=== PATIENT | female | born 1970 | race Caucasian/White ===

== ENCOUNTER → 2016-04-05 | Outpatient (CLI) | payer BC, OTHER | END | disposition home or self-care (01) | LOC: MMGSC 12:20 | PROVIDERS: ATTEND Family Medicine | DX: E03.9 Hypothyroidism, unspecified (principal) | CPT/HCPCS: 36415; 84439; 84443 ==

== ENCOUNTER → 2016-04-06 | Outpatient (CLI) | payer BC, OTHER ==
[2016-04-06 20:23] LABS: Basophils % (A) 0 %; CH 31.9; CHCM 32.7; Eosinophils # (A) 0.1 k/uL (0-0.7); Eosinophils % (A) 2 %; HCT 39.1 % (34.0-46.0); HGB 12.7 gm/dL (11.4-16.0); Luc # (Auto) 0.09; Luc % (Auto) 1; Lymphocytes # (A) 0.9 k/uL (1.0-4.8); Lymphocytes % (A) 14 %; MCH 31.8 pg (25.0-35.0); MCHC 32.4 g/dL (31.0-37.0); MCV 98.1 fL (80.0-100.0); Mean Platelet Volume 9.9; Monocytes # (A) 0.3 k/uL (0-1.0); Monocytes % (A) 6 %; Neutrophils # (A) 4.7 k/uL (1.3-7.7); Neutrophils % (A) 76 %; RBC 3.99 m/uL (3.80-5.40); RDW 12.8 % (11.5-15.5); WBC 6.2 k/uL (3.8-10.6); WBC (Perox) 6.39
[2016-04-06 20:53] LABS: ALT 18 U/L (9-52); AST 20 U/L (14-36); Alkaline Phosphatase 49 U/L (38-126); Anion Gap 9 mmol/L; Blood Urea Nitrogen 9 mg/dL (7-17); Calcium 9.2 mg/dL (8.4-10.2); Carbon Dioxide 26 mmol/L (22-30); Chloride 104 mmol/L (98-107); Cholesterol 198 mg/dL (<200); Glucose 90 mg/dL (74-99); HDL Cholesterol 63 mg/dL (40-60); Non-African American GFR(MDRD) >60 (>60 ml/min/1.73 sqM); Potassium 4.4 mmol/L (3.5-5.1); Sodium 139 mmol/L (137-145); Total Bilirubin 1.2 mg/dL (0.2-1.3); Total Protein 7.7 g/dL (6.3-8.2); Triglycerides 69 mg/dL (<150)
== END | disposition home or self-care (01) ==
LOC: MMGSC 10:19
PROVIDERS: ATTEND Family Medicine
DX: E78.5 Hyperlipidemia, unspecified (principal)
CPT/HCPCS: 36415; 80053; 80061; 85025

== ENCOUNTER → 2016-06-01 | Outpatient (CLI) | payer BC, OTHER | END | disposition home or self-care (01) | LOC: MMGSC 14:04 | PROVIDERS: ATTEND Family Medicine | DX: E03.9 Hypothyroidism, unspecified (principal) | CPT/HCPCS: 36415; 84439; 84443 ==

== ENCOUNTER → 2016-07-28 | Outpatient (CLI) | payer BC, OTHER | LOC: MMGSC 16:17 | PROVIDERS: ATTEND Family Medicine | DX: E03.9 Hypothyroidism, unspecified (principal) | CPT/HCPCS: 36415; 84439; 84443 ==

== ENCOUNTER → 2016-10-28 | Outpatient (CLI) | payer BC, OTHER | LOC: MMGSC 12:13 | PROVIDERS: ATTEND Family Medicine | DX: L30.9 Dermatitis, unspecified (principal) | CPT/HCPCS: 87070; 87075; 87077; 87186; 87205 ==

== ENCOUNTER → 2017-04-21 | Outpatient (CLI) | payer BC, OTHER ==
--- NOTE | 2017-04-22 11:18 | MM ---
Reason for exam: screening (asymptomatic). Last mammogram was performed 2 years and 11 months ago. History: Patient had first child at age 29. Physical Findings: A clinical breast exam by your physician is recommended on an annual basis and results should be correlated with mammographic findings. MG Screening Mammo w CAD Bilateral CC and MLO view(s) were taken. Prior study comparison: May 17, 2014, bilateral MG screening mammo w CAD. April 17, 2013, bilateral digital screening mammo w/CAD. The breast tissue is heterogeneously dense. This may lower the sensitivity of mammography. There is a new right upper inner quadrant 6mm mass at posterior depth. No suspicious abnormality in the left breast. ASSESSMENT: Incomplete: need additional imaging evaluation, BI-RAD 0 RECOMMENDATION: Special view mammogram of the right breast. If lesion persists on supplemental views, image directed ultrasound is recommended. [facility] will attempt to contact patient to return for supplemental views and ultrasound if indicated.
== END | disposition home or self-care (01) ==
LOC: RADMAMWWP 14:28
PROVIDERS: ATTEND Family Medicine
DX: Z12.31 Encounter for screening mammogram for malignant neoplasm of breast (principal)
CPT/HCPCS: 77067

== ENCOUNTER → 2017-04-21 | Outpatient (CLI) | payer BC, OTHER ==
[2017-04-21 19:37] LABS: ALT 14 U/L (9-52); AST 22 U/L (14-36); Albumin 4.3 g/dL (3.5-5.0); Alkaline Phosphatase 52 U/L (38-126); Anion Gap 12 mmol/L; Blood Urea Nitrogen 13 mg/dL (7-17); Calcium 9.7 mg/dL (8.4-10.2); Carbon Dioxide 25 mmol/L (22-30); Chloride 105 mmol/L (98-107); Cholesterol 196 mg/dL (<200); Glucose 105 mg/dL (74-99); HDL Cholesterol 67 mg/dL (40-60); LDL Cholesterol,Calculated 119 mg/dL (0-99); Potassium 4.9 mmol/L (3.5-5.1); Sodium 142 mmol/L (137-145); Total Bilirubin 0.7 mg/dL (0.2-1.3); Total Protein 7.9 g/dL (6.3-8.2); Triglycerides 50 mg/dL (<150)
[2017-04-21 19:39] LABS: Basophils % (A) 1 %; Eosinophils # (A) 0.2 k/uL (0-0.7); Eosinophils % (A) 2 %; HCT 40.7 % (34.0-46.0); HGB 13.8 gm/dL (11.4-16.0); Lymphocytes # (A) 0.7 k/uL (1.0-4.8); Lymphocytes % (A) 10 %; MCH 30.7 pg (25.0-35.0); MCHC 33.9 g/dL (31.0-37.0); MCV 90.6 fL (80.0-100.0); Mean Platelet Volume 9.1; Monocytes # (A) 0.4 k/uL (0-1.0); Monocytes % (A) 7 %; Neutrophils # (A) 5.3 k/uL (1.3-7.7); Neutrophils % (A) 79 %; Platelet Count 257 k/uL (150-450); RBC 4.49 m/uL (3.80-5.40); RDW 12.9 % (11.5-15.5); WBC 6.7 k/uL (3.8-10.6)
== END | disposition home or self-care (01) ==
LOC: MMGSC 09:49
PROVIDERS: ATTEND Family Medicine
DX: E03.9 Hypothyroidism, unspecified (principal); E78.00 Pure hypercholesterolemia, unspecified
CPT/HCPCS: 36415; 80053; 80061; 84439; 84443; 85025

== ENCOUNTER → 2017-04-27 | Outpatient (CLI) | payer BC, OTHER ==
--- NOTE | 2017-04-27 11:47 | MM ---
Reason for exam: additional evaluation requested from abnormal screening. Last mammogram was performed less than 1 month ago. History: Patient had first child at age 29. Physical Findings: Nurse did not find any significant physical abnormalities on exam. MG 3D Work Up W/Cad RT Spot compression CC, spot compression MLO, and ML view(s) were taken of the right breast. Prior study comparison: April 21, 2017, bilateral MG screening mammo w CAD. May 17, 2014, bilateral MG screening mammo w CAD. The breast tissue is heterogeneously dense. This may lower the sensitivity of mammography. Very subtle isodense circumscribed mass measuring 6-7mm persists at 1 o'clock middle to posterior depth. These results were verbally communicated with the patient and result sheet given to the patient on 04/27/17. ASSESSMENT: Incomplete: need additional imaging evaluation, BI-RAD 0 RECOMMENDATION: Ultrasound of the right breast. (upper inner quadrant)
--- NOTE | 2017-04-27 11:49 | USB ---
Reason for exam: additional evaluation requested from abnormal screening. History: Patient had first child at age 29. US Breast Workup Limited RT Right breast ultrasound demonstrates a 6 x 5 x 6mm oval, cystic lesion at 1 o'clock, corresponds well to the mammographic finding. Benign. These results were verbally communicated with the patient and result sheet given to the patient on 04/27/17. ASSESSMENT: Benign, BI-RAD 2 RECOMMENDATION: Return to routine screening mammogram schedule for both breasts.
== END | disposition home or self-care (01) ==
LOC: RADMAMWWP 09:38
PROVIDERS: ATTEND Family Medicine
DX: R92.8 Other abnormal and inconclusive findings on diagnostic imaging of breast (principal)
CPT/HCPCS: 77065; 76642; G0279

== ENCOUNTER → 2019-12-21 | Outpatient (CLI) | payer BC, OTHER ==
--- NOTE | 2019-12-24 12:02 | MM ---
Reason for exam: screening (asymptomatic). Last mammogram was performed 2 years and 8 months ago. History: Patient had first child at age 29. Physical Findings: A clinical breast exam by your physician is recommended on an annual basis and results should be correlated with mammographic findings. MG 3D Screening Mammo W/Cad Bilateral CC and MLO view(s) were taken. Prior study comparison: April 27, 2017, right breast MG 3d work up w/cad RT. April 21, 2017, bilateral MG screening mammo w CAD. The breast tissue is heterogeneously dense. This may lower the sensitivity of mammography. There is no discrete abnormality. ASSESSMENT: Benign, BI-RAD 2 RECOMMENDATION: Routine screening mammogram of both breasts in 1 year.
== END | disposition home or self-care (01) ==
LOC: RADMAMWWP 14:54
PROVIDERS: ATTEND Family Medicine
DX: Z12.31 Encounter for screening mammogram for malignant neoplasm of breast (principal)
CPT/HCPCS: 77063; 77067

== ENCOUNTER → 2021-05-04 | Outpatient (CLI) | payer BC, OTHER ==
--- NOTE | 2021-05-06 09:16 | MM ---
Reason for exam: screening (asymptomatic). Last mammogram was performed 1 year and 4 months ago. History: Patient is postmenopausal and had first child at age 29. Physical Findings: A clinical breast exam by your physician is recommended on an annual basis and results should be correlated with mammographic findings. MG 3D Screening Mammo W/Cad Bilateral CC and MLO view(s) were taken. Prior study comparison: December 21, 2019, bilateral MG 3d screening mammo w/cad. April 27, 2017, right breast MG 3d work up w/cad RT. The breast tissue is heterogeneously dense. This may lower the sensitivity of mammography. No significant changes when compared with prior studies. ASSESSMENT: Benign, BI-RAD 2 RECOMMENDATION: Routine screening mammogram of both breasts in 1 year.
== END | disposition home or self-care (01) ==
LOC: RADMAMWWP 13:03
PROVIDERS: ATTEND Family Medicine
DX: Z12.31 Encounter for screening mammogram for malignant neoplasm of breast (principal)
CPT/HCPCS: 77063; 77067

== ENCOUNTER 2021-09-13 20:26 | Observation (INO) | payer BC, OTHER ==
[2021-09-13] MEDS ORDERED: ASPIRIN 81 MG PO STA (20:37)
[2021-09-13] MEDS ORDERED: METOPROLOL TARTRATE 5 MG/5 ML VIAL IVP STA (20:38)
--- NOTE | 2021-09-13 20:42 | ED ---
General Adult HPI - General Chief complaint: Chest Pain Stated complaint: Chest pain Time Seen by Provider: 09/13/21 20:35 Source: patient, EMS, RN notes reviewed Mode of arrival: EMS Limitations: no limitations - History of Present Illness Initial comments: Patient is a pleasant 1-year-old female presenting to the emergency Department with chest discomfort. Onset of symptoms was around an hour and a half ago. Patient has pressure in her chest. Discomfort was mild to moderate. Patient feels shaky. Patient maybe has mild dyspnea. No history of similar symptoms previously. No previous cardiac history. Symptoms did improve with nitro glycerin by EMS and patient is near symptom-free at this time. - Related Data Home Medications Medication Instructions Recorded Confirmed Levothyroxine Sodium [Synthroid] 125 mcg PO DAILY 09/13/21 09/13/21 Rosuvastatin [Crestor] 10 mg PO HS 09/13/21 09/13/21 Sertraline [Zoloft] 50 mg PO DAILY 09/13/21 09/13/21 atenoloL [Tenormin] 12.5 mg PO HS 09/13/21 09/13/21 Allergies Allergy/AdvReac Type Severity Reaction Status Date / Time codeine Allergy Vomiting Verified 09/13/21 20:58 Penicillins Allergy Rash/Hives Verified 09/13/21 20:58 Sulfa (Sulfonamide Allergy Rash/Hives Verified 09/13/21 20:58 Antibiotics) Review of Systems ROS Statement: Those systems with pertinent positive or pertinent negative responses have been documented in the HPI. ROS Other: All systems not noted in ROS Statement are negative. Constitutional: Denies: fever Eyes: Denies: eye pain ENT: Denies: ear pain Respiratory: Denies: cough Cardiovascular: Reports: as per HPI, chest pain Endocrine: Denies: fatigue Gastrointestinal: Denies: abdominal pain, vomiting Genitourinary: Denies: dysuria Musculoskeletal: Denies: arthralgia Skin: Denies: rash Neurological: Denies: weakness General Exam Limitations: no limitations General appearance: alert, in no apparent distress Head exam: Present: normocephalic Eye exam: Present: normal appearance Neck exam: Present: normal inspection Respiratory exam: Present: normal lung sounds bilaterally Cardiovascular Exam: Present: tachycardia Expanded Peripheral pulses: 2+: Radial (R), Radial (L), Dorsalis Pedis (R), Dorsalis Pedis (L) GI/Abdominal exam: Present: soft. Absent: tenderness Extremities exam: Present: normal inspection. 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 flutter with RVR rate 129. QRS 113. QT 323. QTC 399. Right axis. Right bundle branch block. Incomplete. Diffuse ST depression. Elevation aVR. EKG #3 shows atrial flutter with rate of 139. QRS 10. QT 310. QTc 391. Right axis. Incomplete right bundle-branch block. Elevation aVR. ST depression diffuse. 09/13/21 20:47 EKG #4 shows flutter with a rate of 112, QRS 117. QT 337. QTC 404. Right axis. Right bundle branch block. Diffuse ST depression. Elevation aVR. 09/13/21 20:51 Case was discussed with Dr. Sheffield who will review EKGs. He states patient unlikely to go immediately to [facility] secondary to near symptom-free. EKG Findings - EKG Comments: EKG Findings:: EKG shows A. fib with rate 133. QRS 118. QT 370. QTc 395. Rig ht axis. Right bundle branch block. Diffuse ST depression. ST elevation aVR. Medical Decision Making - Medical Decision Making Patient reevaluated and resting comfortably in bed, still negative and symptom- free. Patient does feel mildly anxious. Heart rate has been between 112 and 120. Patient will be started low dose Cardizem drip and admitted with cardiology consult. Case was earlier discussed with who will admit. - Lab Data Result diagrams: 09/13/21 20:45 09/13/21 20:45 Lab Results 09/13/21 09/13/21 09/13/21 Range/Units 20:45 20:45 20:45 WBC 6.4 (3.8-10.6) k/uL RBC 4.08 (3.80-5.40) m/uL Hgb 12.2 (11.4-16.0) gm/dL Hct 37.4 (34.0-46.0) % MCV 91.8 (80.0-100.0) fL MCH 30.0 (25.0-35.0) pg MCHC 32.7 (31.0-37.0) g/dL RDW 12.5 (11.5-15.5) % Plt Count 266 (150-450) k/uL MPV 9.1 Neutrophils % 61 % Lymphocytes % 26 % Monocytes % 7 % Eosinophils % 3 % Basophils % 1 % Neutrophils # 3.9 (1.3-7.7) k/uL Lymphocytes # 1.7 (1.0-4.8) k/uL Monocytes # 0.4 (0-1.0) k/uL Eosinophils # 0.2 (0-0.7) k/uL Basophils # 0.0 (0-0.2) k/uL PT 10.6 (9.0-12.0) sec INR 1.0 (<1.2) APTT 22.3 (22.0-30.0) sec Sodium 137 (137-145) mmol/L Potassium 3.3 L (3.5-5.1) mmol/L Chloride 106 (98-107) mmol/L Carbon Dioxide 20 L (22-30) mmol/L Anion Gap 11 mmol/L BUN 8 (7-17) mg/dL Creatinine 0.61 (0.52-1.04) mg/dL Est GFR (CKD-EPI)AfAm >90 (>60 ml/min/1.73 sqM) Est GFR (CKD-EPI)NonAf >90 (>60 ml/min/1.73 sqM) Glucose 135 H (74-99) mg/dL Calcium 9.3 (8.4-10.2) mg/dL Magnesium 1.7 (1.6-2.3) mg/dL Total Bilirubin 0.6 (0.2-1.3) mg/dL AST 23 (14-36) U/L ALT 10 (4-34) U/L Alkaline Phosphatase 99 (38-126) U/L Troponin I (0.000-0.034) ng/mL Total Protein 7.6 (6.3-8.2) g/dL Albumin 4.4 (3.5-5.0) g/dL 09/13/21 Range/Units 20:45 WBC (3.8-10.6) k/uL RBC (3.80-5.40) m/uL Hgb (11.4-16.0) gm/dL Hct (34.0-46.0) % MCV (80.0-100.0) fL MCH (25.0-35.0) pg MCHC (31.0-37.0) g/dL RDW (11.5-15.5) % Plt Count (150-450) k/uL MPV Neutrophils % % Lymphocytes % % Monocytes % % Eosinophils % % Basophils % % Neutrophils # (1.3-7.7) k/uL Lymphocytes # (1.0-4.8) k/uL Monocytes # (0-1.0) k/uL Eosinophils # (0-0.7) k/uL Basophils # (0-0.2) k/uL PT (9.0-12.0) sec INR (<1.2) APTT (22.0-30.0) sec Sodium (137-145) mmol/L Potassium (3.5-5.1) mmol/L Chloride (98-107) mmol/L Carbon Dioxide (22-30) mmol/L Anion Gap mmol/L BUN (7-17) mg/dL Creatinine (0.52-1.04) mg/dL Est GFR (CKD-EPI)AfAm (>60 ml/min/1.73 sqM) Est GFR (CKD-EPI)NonAf (>60 ml/min/1.73 sqM) Glucose (74-99) mg/dL Calcium (8.4-10.2) mg/dL Magnesium (1.6-2.3) mg/dL Total Bilirubin (0.2-1.3) mg/dL AST (14-36) U/L ALT (4-34) U/L Alkaline Phosphatase (38-126) U/L Troponin I <0.012 (0.000-0.034) ng/mL Total Protein (6.3-8.2) g/dL Albumin (3.5-5.0) g/dL - Radiology Data Radiology results: image reviewed (Chest x-ray shows no acute process) Disposition Clinical Impression: Narrow complex tachycardia, Chest pain Disposition: ADMITTED IP TO THIS HOSP Is patient prescribed a controlled substance at d/c from ED?: No Referrals: Quyen Ge MD [Primary Care Provider] - 1-2 days Time of Disposition: 22:16
[2021-09-13 20:53] LABS: Basophils % (A) 1 %; Eosinophils # (A) 0.2 k/uL (0-0.7); Eosinophils % (A) 3 %; HCT 37.4 % (34.0-46.0); HGB 12.2 gm/dL (11.4-16.0); Lymphocytes # (A) 1.7 k/uL (1.0-4.8); Lymphocytes % (A) 26 %; MCHC 32.7 g/dL (31.0-37.0); MCV 91.8 fL (80.0-100.0); Mean Platelet Volume 9.1; Monocytes # (A) 0.4 k/uL (0-1.0); Monocytes % (A) 7 %; Neutrophils # (A) 3.9 k/uL (1.3-7.7); Neutrophils % (A) 61 %; Platelet Count 266 k/uL (150-450); RBC 4.08 m/uL (3.80-5.40); RDW 12.5 % (11.5-15.5); WBC 6.4 k/uL (3.8-10.6)
--- NOTE | 2021-09-13 21:00 | XR ---
EXAMINATION TYPE: XR chest 1V portable DATE OF EXAM: 09/13/2021 COMPARISON: NONE HISTORY: Chest pain TECHNIQUE: Single view FINDINGS: Heart is normal. Lungs are clear of consolidation. There are no hilar masses. Costophrenic angles are clear. There are chest leads. IMPRESSION: No active cardiopulmonary disease. Normal heart
[2021-09-13] MEDS ORDERED: HEPARIN SODIUM 1,000 UN/ML (10ML VL) IV ONE (21:02)
[2021-09-13] MEDS ORDERED: HEPARIN SODIUM 1,000 UN/ML (10ML VL) IV PRN (21:02)
[2021-09-13 21:04] LABS: ALT 10 U/L (4-34); AST 23 U/L (14-36); African American GFR (CKD) >90 (>60 ml/min/1.73 sqM); Albumin 4.4 g/dL (3.5-5.0); Alkaline Phosphatase 99 U/L (38-126); Anion Gap 11 mmol/L; Blood Urea Nitrogen 8 mg/dL (7-17); Calcium 9.3 mg/dL (8.4-10.2); Carbon Dioxide 20 mmol/L (22-30); Chloride 106 mmol/L (98-107); Glucose 135 mg/dL (74-99); Magnesium 1.7 mg/dL (1.6-2.3); Non-African American GFR(CKD) >90 (>60 ml/min/1.73 sqM); Potassium 3.3 mmol/L (3.5-5.1); Sodium 137 mmol/L (137-145); Total Bilirubin 0.6 mg/dL (0.2-1.3); Total Protein 7.6 g/dL (6.3-8.2)
[2021-09-13 21:07] LABS: Partial Thromboplastin Time 22.3 sec (22.0-30.0); Prothrombin Time 10.6 sec (9.0-12.0)
[2021-09-13] MEDS ORDERED: HEPARIN SOD,PORK IN 0.45% NACL 25,000 UNIT in 0.45% NACL 1 250ML.BAG IV SCH (21:15)
[2021-09-13] MEDS ORDERED: LORazepam 1 MG TAB PO STA (22:14)
[2021-09-13] MEDS ORDERED: DILTIAZEM 125 MG in SODIUM CHLORIDE 0.9% 100 ML IV SCH (22:15)
[2021-09-13] MEDS ORDERED: NALOXONE 0.4 MG/ML 1 ML VIAL IV PRN (22:16)
[2021-09-14] MEDS ORDERED: POTASSIUM CHLORIDE ER 20 MEQ TAB.ER PO STA (00:15)
--- NOTE | 2021-09-14 00:16 | P.HPIM ---
History of Present Illness H&P Date: 09/13/21 The patient is a 51-year-old female with a PMH of hypothyroidism, hypertension, and hyperlipidemia who presents to the emergency room with complaints of palpitations and chest tightness. The patient reports that she was in her usual state of health until about 6:30 PM tonight when she suddenly developed her symptoms. She reported that her symptoms gradually improved after arrival at the emergency room, and at time of interview reported 2 out of 10 chest tightness without palpitations. She denies fainting cough, fever, chills, nausea, vomiting, diaphoresis, or dizziness. She reports a distant history of palpitations in 2002 when she was diagnosed with SVT. In the emergency room, multiple EKGs revealed atrial fibrillation with RVR with an incomplete right bundle branch block. Chest x-ray was unremarkable. Laboratory evaluation was remarkable for potassium of 3.3 and troponin less than 0.012. Review of systems: Pertinent positives and negatives as discussed in HPI, a complete review of systems was performed and all other systems are negative. Physical examination: General: non toxic, no distress, appears at stated age, normal weight Derm: no unusual rashes/lesions, warm Head: atraumatic, normocephalic, symmetric Eyes: EOMI, no lid lag, anicteric sclera, pupils equal round reactive to light ENT: Nose and ears atraumatic Neck: No cervical lymphadenopathy, trachea midline, supple Mouth: no lip lesion, mucus membranes moist Cardiovascular: Tachycardic, irregularly irregular, no murmur, positive dorsalis pedis pulse bilateral, no edema Lungs: CTA bilateral, no rhonchi, no rales, no accessory muscle use Abdominal: soft, nontender to palpation, no guarding Ext: muscle strength 5 out of 5 in all 4 extremities grossly, no gross muscle atrophy, no contractures, Neuro: CN II-XI grossly intact, no gross focal neuro deficits Psych: Alert, oriented, appropriate affect Assessment/plan A. fib with RVR -Continue with Cardizem infusion -Heparin infusion -Cardiology consulted -Cardiac monitoring Hypokalemia -Replace and monitor Chronic conditions: Hypothyroidism, hypertension, hyperkalemia -Continue with home meds DVT prophylaxis -Heparin infusion The patient is admitted with an anticipated greater than 2 midnight stay for evaluation of Afib with RVR CODE STATUS: Full Code Discussed with: Patient Anticipated discharge date: 09/[address]: Home Past Medical History - Past Family History Mother Family Medical History: Myocardial Infarction ([place]), Renal Disease Additional Family Medical History / Comment(s): DEPRESSION, Father Additional Family Medical History / Comment(s): PARKINSONS Medications and Allergies Home Medications Medication Instructions Recorded Confirmed Type Levothyroxine Sodium [Synthroid] 125 mcg PO DAILY 09/13/21 09/13/21 History Rosuvastatin [Crestor] 10 mg PO HS 09/13/21 09/13/21 History Sertraline [Zoloft] 50 mg PO DAILY 09/13/21 09/13/21 History atenoloL [Tenormin] 12.5 mg PO HS 09/13/21 09/13/21 History Allergies Allergy/AdvReac Type Severity Reaction Status Date / Time codeine Allergy Vomiting Verified 09/13/21 20:58 Penicillins Allergy Rash/Hives Verified 09/13/21 20:58 Sulfa (Sulfonamide Allergy Rash/Hives Verified 09/13/21 20:58 Antibiotics) Physical Exam Vitals: Vital Signs Temp Pulse Pulse Resp BP Pulse Ox 09/13/21 22:56 98.4 F 124 H 18 105/76 98 09/13/21 20:48 112 H 18 103/64 98 09/13/21 20:42 131 H 18 108/57 98 09/13/21 20:35 137 H 09/13/21 20:27 98.4 F 137 H 18 109/65 97 Intake and Output 09/13/21 09/13/21 09/14/21 14:59 22:59 06:59 Other: Weight 59.8 kg Results CBC & Chem 7: 09/13/21 20:45 09/13/21 20:45 Labs: Abnormal Lab Results - Last 24 Hours (Table) 09/13/21 Range/Units 20:45 Potassium 3.3 L (3.5-5.1) mmol/L Carbon Dioxide 20 L (22-30) mmol/L Glucose 135 H (74-99) mg/dL
[2021-09-14 02:43] LABS: Basophils % (A) 0 %; Eosinophils # (A) 0.1 k/uL (0-0.7); Eosinophils % (A) 1 %; HCT 38.1 % (34.0-46.0); HGB 12.6 gm/dL (11.4-16.0); Lymphocytes # (A) 1.2 k/uL (1.0-4.8); Lymphocytes % (A) 14 %; MCHC 33.1 g/dL (31.0-37.0); MCV 93.5 fL (80.0-100.0); Mean Platelet Volume 8.7; Monocytes # (A) 0.2 k/uL (0-1.0); Monocytes % (A) 3 %; Neutrophils # (A) 7.1 k/uL (1.3-7.7); Neutrophils % (A) 81 %; Platelet Count 255 k/uL (150-450); RBC 4.07 m/uL (3.80-5.40); RDW 12.5 % (11.5-15.5); WBC 8.7 k/uL (3.8-10.6)
[2021-09-14 02:53] LABS: Partial Thromboplastin Time 42.9 sec (22.0-30.0); Prothrombin Time 10.5 sec (9.0-12.0)
[2021-09-14] MEDS: LEVOTHYROXINE 125 MCG TAB PO SCH (06:39)
[2021-09-14] MEDS: SERTRALINE 50 MG TAB PO SCH (07:37)
[2021-09-14] MEDS: FAMOTIDINE 20 MG TAB PO SCH ×2 (07:37→21:34)
[2021-09-14] MEDS: METOPROLOL SUCCINATE (ER) 25 MG TAB.ER.24H PO SCH (08:46)
[2021-09-14] MEDS ORDERED: ASPIRIN 325 MG TAB PO SCH (09:00)
[2021-09-14 10:13] LABS: African American GFR (CKD) >90 (>60 ml/min/1.73 sqM); Anion Gap 6 mmol/L; Blood Urea Nitrogen 6 mg/dL (7-17); Calcium 9.1 mg/dL (8.4-10.2); Carbon Dioxide 24 mmol/L (22-30); Chloride 111 mmol/L (98-107); Glucose 135 mg/dL (74-99); Non-African American GFR(CKD) >90 (>60 ml/min/1.73 sqM); Potassium 4.1 mmol/L (3.5-5.1); Sodium 141 mmol/L (137-145)
--- NOTE | 2021-09-14 11:20 | P.CRDCN ---
History of Present Illness History of present illness: HISTORY OF PRESENTING ILLNESS This is a pleasant 51-year-old female past medical history significant for hypothyroidism, dyslipidemia, hypertension. 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 We have been asked to see in consultation for SVT. Patient was admitted to the emergency department with complaints of palpitations and back pain. She states yesterday she was at a barbecue, had half a glass of wine. She stated that she started to have palpitations, and some pain in the middle of her back. She states her palpitations did not improve and she presents emergency department for further evaluation. On admission patient was started on a Cardizem drip. He heart rates have improved. She is feeling better, symptoms have resolved. He she states she is seen and has a history of SVT. No history of CAD, [place], Stroke, Diabetes. She denies any tobacco use. She states she drinks wine occasionally, sometimes 1 glass every other day DIAGNOSTICS * EKG reveals Supraventricular tachycardia, AVNRT. Heart rate 133. * EKG revealed sinus rhythm, heart rate 96, incomplete right bundle branch block * Telemetry tracings indicate sinus rhythm HR 70s-90s * Chest xray no acute cardiopulmonary process * Laboratory reviewed, troponin negative, troponin negative, 0.049 0.085, CBC unremarkable, sodium 141, potassium 4.1, BUN 6, serum creatinine 0.4 * Current home medications include atenolol 25 mg nightly, Zoloft, rosuvastatin 10 mg nightly, Synthroid 125mcg daily REVIEW OF SYSTEMS At the time of my exam: CONSTITUTIONAL: Denies fever or chills. CARDIOVASCULAR: Denies chest pain, shortness of breath, orthopnea, PND. Reports palpitations. RESPIRATORY: Denies cough. GASTROINTESTINAL: Denies abdominal pain, diarrhea, constipation, nausea or vomiting. MUSCULOSKELETAL: Denies myalgias. NEUROLOGIC: Denies numbness, tingling, headacbe or weakness. ENDOCRINE: Denies fatigue, weight change, polydipsia or polyurina. GENITOURINARY: Denies burning, hematuria or urgency with micturation. HEMATOLOGIC: Denies history of anemia or bleeding. PHYSICAL EXAMINATION Blood pressure 110/64, heart rate 90 4. afebrile. Saturation 98% on room air CONSTITUTIONAL: No apparent distress. HEENT: Head is normocephalic. Pupils are equal, round. Sclerae anicteric. Mucous membranes of the mouth are moist. No JVD. No carotid bruit. CHEST EXAMINATION: Lungs are clear to auscultation. No chest wall tenderness is noted on palpation or with deep breathing. HEART EXAMINATION: Regular rate and rhythm. S1, S2 heard. No murmurs, gallops or rub. ABDOMEN: Soft, nontender. Positive bowel sounds. EXTREMITIES: 2+ peripheral pulses, no lower extremity edema and no calf tenderness. NEUROLOGIC EXAMINATION: Patient is awake, alert and oriented x3. ASSESSMENT Supraventricular tachycardia, AVNRT Elevated troponin, likely tachycardia-induced History of SVT Hypothyroidism Dyslipidimeal Hypertension PLAN Stop atenolol Stop IV Cardizem Start metoprolol succinate 25mg daily Monitor on telemetry Obtain 2D echocardiogram and doppler study to assess cardiac structure and function. Recommend check thyroid labs, will defer management to primary Further recommendations based on clinical course Nurse practitioner note has been reviewed by physician. Signing provider agrees with the documented findings, assessment, and plan of care. Past Medical History Past Medical History: Supraventricular Tachycardia (SVT) Additional Past Medical History / Comment(s): SVT 2003 History of Any Multi-Drug Resistant Organisms: None Reported Additional Past Surgical History / Comment(s): WISDOM TEETH REMOVED Past Anesthesia/Blood Transfusion Reactions: No Reported Reaction Past Psychological History: No Psychological Hx Reported Smoking Status: Never smoker - Past Family History Mother Family Medical History: Myocardial Infarction ([place]), Renal Disease Additional Family Medical History / Comment(s): DEPRESSION, Father Additional Family Medical History / Comment(s): PARKINSONS Medications and Allergies Home Medications Medication Instructions Recorded Confirmed Type Levothyroxine Sodium [Synthroid] 125 mcg PO DAILY 09/13/21 09/13/21 History Rosuvastatin [Crestor] 10 mg PO HS 09/13/21 09/13/21 History Sertraline [Zoloft] 50 mg PO DAILY 09/13/21 09/13/21 History atenoloL [Tenormin] 12.5 mg PO HS 09/13/21 09/13/21 History Allergies Allergy/AdvReac Type Severity Reaction Status Date / Time codeine Allergy Vomiting Verified 09/13/21 20:58 Penicillins Allergy Rash/Hives Verified 09/13/21 20:58 Sulfa (Sulfonamide Allergy Rash/Hives Verified 09/13/21 20:58 Antibiotics) Physical Exam Vitals: Vital Signs Temp Pulse Pulse Resp BP BP Pulse Ox 09/14/21 07:33 98.0 F 89 16 110/68 99 09/14/21 04:00 98.3 F 116 H 15 118/77 98 09/14/21 02:00 121 H 16 09/14/21 00:36 121 H 16 09/13/21 23:15 98.4 F 121 H 16 120/74 09/13/21 23:13 121 H 16 09/13/21 22:56 98.4 F 124 H 18 105/76 98 09/13/21 20:48 112 H 18 103/64 98 09/13/21 20:42 131 H 18 108/57 98 09/13/21 20:35 137 H 09/13/21 20:27 98.4 F 137 H 18 109/65 97 Intake and Output 09/13/21 09/14/21 09/14/21 22:59 06:59 14:59 Intake Total 40.066 46.883 Balance 40.066 46.883 Intake: Intake, IV Titration 40.066 46.883 Amount Heparin Sod,Pork in 0.45% 40.066 46.883 NaCl 25,000 unit In 0.45 % NaCl 1 250ml.bag @ 12 UNITS/KG/HR 7.176 mls/hr IV .Q24H [facility] Rx#: [id number] Other: Voiding Method Toilet Weight 59.8 kg 59.8 kg Results 09/14/21 02:24 09/14/21 02:24 Cardiac Enzymes 09/13/21 09/13/21 09/14/21 Range/Units 20:45 20:45 00:03 AST 23 (14-36) U/L Troponin I <0.012 0.049 H* (0.000-0.034) ng/mL 09/14/21 Range/Units 02:24 AST (14-36) U/L Troponin I 0.086 H* (0.000-0.034) ng/mL Coagulation 09/13/21 09/14/21 Range/Units 20:45 02:24 PT 10.6 10.5 (9.0-12.0) sec APTT 22.3 42.9 H (22.0-30.0) sec CBC 09/13/21 09/14/21 Range/Units 20:45 02:24 WBC 6.4 8.7 (3.8-10.6) k/uL RBC 4.08 4.07 (3.80-5.40) m/uL Hgb 12.2 12.6 (11.4-16.0) gm/dL Hct 37.4 38.1 (34.0-46.0) % Plt Count 266 255 (150-450) k/uL Comprehensive Metabolic Panel 09/13/21 09/14/21 Range/Units 20:45 02:24 Sodium 137 141 (137-145) mmol/L Potassium 3.3 L 4.1 (3.5-5.1) mmol/L Chloride 106 111 H (98-107) mmol/L Carbon Dioxide 20 L 24 (22-30) mmol/L BUN 8 6 L (7-17) mg/dL Creatinine 0.61 0.49 L (0.52-1.04) mg/dL Glucose 135 H 135 H (74-99) mg/dL Calcium 9.3 9.1 (8.4-10.2) mg/dL AST 23 (14-36) U/L ALT 10 (4-34) U/L Alkaline Phosphatase 99 (38-126) U/L Total Protein 7.6 (6.3-8.2) g/dL Albumin 4.4 (3.5-5.0) g/dL Current Medications Generic Name Dose Route Start Last Admin Trade Name Freq PRN Reason Stop Dose Admin Atorvastatin Calcium 20 mg 09/14/21 21:00 Atorvastatin 20 Mg Tab PO HS [facility] Famotidine 20 mg 09/14/21 09:00 09/14/21 07:37 Famotidine 20 Mg Tab PO 20 mg BID [facility] Administration Levothyroxine Sodium 125 mcg 09/14/21 06:30 09/14/21 06:39 Levothyroxine 125 Mcg Tab PO 125 mcg DAILY@0630 [facility] Administration Metoprolol Succinate 25 mg 09/14/21 09:00 09/14/21 08:46 Metoprolol Succinate (Er) 25 Mg Tab.Er.24h PO 25 mg DAILY [facility] Administration Naloxone HCl 0.2 mg 09/13/21 22:16 Naloxone 0.4 Mg/Ml 1 Ml Vial IV Q2M PRN Opioid Reversal Sertraline HCl 50 mg 09/14/21 09:00 09/14/21 07:37 Sertraline 50 Mg Tab PO 50 mg DAILY [facility] Administration Intake and Output 09/13/21 09/14/21 09/14/21 22:59 06:59 14:59 Intake Total 40.066 46.883 Balance 40.066 46.883 Intake: Intake, IV Titration 40.066 46.883 Amount Heparin Sod,Pork in 0.45% 40.066 46.883 NaCl 25,000 unit In 0.45 % NaCl 1 250ml.bag @ 12 UNITS/KG/HR 7.176 mls/hr IV .Q24H [facility] Rx#: [id number] Other: Voiding Method Toilet Weight 59.8 kg 59.8 kg 09/14/21 02:24 09/14/21 02:24
[2021-09-14 11:40] LABS: T4, Free (Free Thyroxine) 2.17 ng/dL (0.78-2.19)
--- NOTE | 2021-09-14 13:56 | CA ---
Transthoracic Echo Report Name: Yamilet Noe Age: 51 Gender: F : 1970 Exam Date: 09/14/2021 10:32 Exam Location: [facility] Ht (in): 65 Wt (lb): 131 Ordering Physician: Fern Mccord Attending/Referring Phys: Oil Well Fishing Tool Technician Bruna Jacinto RDCS Procedure CPT: Indications: SVT on admission, HR improved. LV function Cardiac Hx: Hx of SVT,Chol, Fm hx of heart disease. Technical Quality: Good Contrast 1: Total Dose (mL): Contrast 2: Total Dose (mL): MEASUREMENTS (Male / Female) Normal Values 2D ECHO LV Diastolic Diameter PLAX 3.9 cm 4.2 - 5.9 / 3.9 - 5.3 cm LV Systolic Diameter PLAX 2.5 cm IVS Diastolic Thickness 0.8 cm 0.6 - 1.0 / 0.6 - 0.9 cm LVPW Diastolic Thickness 0.8 cm 0.6 - 1.0 / 0.6 - 0.9 cm LV Relative Wall Thickness 0.4 LA Volume 28.0 cm??? 18 - 58 / 22 - 52 cm??? M-MODE Aortic Root Diameter MM 2.9 cm LA Systolic Diameter MM 2.1 cm LA Ao Ratio MM 0.7 MV E Point Septal Separation 0.9 cm AV Cusp Separation MM 1.7 cm DOPPLER AV Peak Velocity 113.7 cm/s AV Peak Gradient 5.2 mmHg MV Area PHT 4.8 cm??? MR Peak Velocity 115.4 cm/s MR Peak Gradient 5.3 mmHg Mitral E Point Velocity 94.5 cm/s Mitral A Point Velocity 81.5 cm/s Mitral E to A Ratio 1.2 MV Deceleration Time 158.8 ms MV E' Velocity 11.3 cm/s Mitral E to MV E' Ratio 8.4 TR Peak Velocity 131.3 cm/s TR Peak Gradient 6.9 mmHg Right Ventricular Systolic Press 11.4 mmHg FINDINGS Left Ventricle Normal Left ventricular size, wall thickness, systolic function with no obvious regional wall motion abnormalities. Normal Left ventricular diastolic filling pattern. Left ventricular ejection fraction is estimated at 55-60 %. Right Ventricle The right ventricle is normal in size and function. Right Atrium The right atrium is normal in size. Left Atrium The left atrium is normal in size. Mitral Valve Structurally normal mitral valve without significant stenosis or prolapse. There is trace mitral regurgitation. Aortic Valve Structurally normal aortic valve without significant sclerosis or stenosis. There is no aortic regurgitation. Tricuspid Valve Structurally normal tricuspid valve without significant stenosis. Pulmonary artery systolic pressure is normal. Mild tricuspid regurgitation. Pulmonic Valve Structurally normal pulmonic valve without significant stenosis. There is no pulmonic regurgitation. Pericardium Normal pericardium without effusion. Aorta Normal aortic root dimension. CONCLUSIONS Normal LV size and systolic function No significant valvular abnormalities Previewed by: Dr. Kirit Sommers MD (Electronically Signed) Final Date: 14 September 2021 13:55
--- NOTE | 2021-09-14 15:41 | P.PN ---
Subjective Progress Note Date: 09/14/21 Hospital course: Patient is a very pleasant 51-year-old female with a past medical history of hypothyroidism, hypertension, hyperlipidemia, and isolated episode of SVT in 2002. She presented to the emergency department with a chief complaint of palpitations and chest tightness. She underwent full evaluation in the emergency department and was found to be in A. flutter with RVR. CBC, CMP, and coags showing no significant abnormalities with the exception of hypokalemia with potassium of 3.3 with current dioxide of 20. D-dimer normal findings is 0.28 and troponin less than 0.012. Patient was admitted under our services of consultation to cardiology. Patient monitored overnight. Troponins increasing from 0.012-0.049 and 0.086. TSH completed less than 0.015 with a normal free T4 of 2.17. Patient now in normal sinus rhythm. Cardizem and heparin infusion were discontinued. Resource Protection Specialist evaluated EKG stating this was not atrial flutter this was SVT and starting patient on metoprolol 25 mg daily. TSH completed less than 0.015 with a normal free T4 of 2.17. Physical exam: Vital signs reviewed and stable. General: Nontoxic, no distress and appears stated age. Derm: Skin warm and dry, normal coloration for ethnicity. Head: Atraumatic, normocephalic and symmetric. Eyes: EOMs intact, no lid lag, and anicteric sclera Mouth: no lip lesions, mucus membranes moist Cardiovascular: regular rate and rhythm with normal S1S2, no murmur, positive posterior tibial pulses bilaterally, and cap refill < 2 seconds. Lungs: Respirations even, regular, and unlabored on room air. Lungs CTA bilaterally, no rhonchi, no rales, no wheezing, and no accessory muscle usage. Abdominal: soft, nontender to palpation, no guarding, no appreciable organomegaly Ext: ROM intact. No gross muscle atrophy, no edema, no contractures Neuro: Speech clear, face symmetrical and CN II-XII grossly intact with no noted focal neuro deficits Psych: Alert and oriented to person, place, time, and situation. Appropriate and pleasant affect. Assessment and Plan of Care: SVT Elevated troponin, likely secondary to tachycardic rate -Cardiology following, appreciate further recommendations -Telemetry monitoring -Echocardiogram to be completed -Cardiac diet -Continue metoprolol 25 mg daily -Lipid profile with a.m. labs. -Echocardiogram Hypokalemia, resolved Hypertension -Monitor vital signs and continue daily medication regimen. Hyperlipidemia -Continue daily medication regimen with atorvastatin Hypothyroidism -Continue daily medication regimen with liver thyroxine 125 g daily. -TSH 0.015 with a normal free T4 of 2.17. Recommend repeat testing in 8-12 weeks by PCP/endocrinology an outpatient basis. Anxiety -Continue daily medication regimen of Zoloft. CODE STATUS: Full code DVT prophylaxis: Heparin Discussed with: Patient and RN Anticipated discharge date: Tomorrow morning Anticipated discharge place: Home A total of 34 minutes was spent on the care of this complex patient more than 50% of the time was spent in counseling and care coordination. I reviewed the documentation as provided by the GUY above, who is the original author of this note. I agree with the documented assessment and plan, with the following changes: none Objective - Vital Signs Vital signs: Vital Signs Temp 98.0 F 09/14/21 07:33 Pulse 89 09/14/21 07:33 Resp 16 09/14/21 07:33 BP 110/68 09/14/21 07:33 Pulse Ox 99 09/14/21 07:33 FiO2 Intake & Output 09/13/21 09/14/21 09/14/21 18:59 06:59 18:59 Intake Total 40.066 46.883 Balance 40.066 46.883 Weight 59.8 kg Intake: Intake, IV Titration 40.066 46.883 Amount Heparin Sod,Pork in 0.45% 40.066 46.883 NaCl 25,000 unit In 0.45 % NaCl 1 250ml.bag @ 12 UNITS/KG/HR 7.176 mls/hr IV .Q24H [facility] Rx#: [id number] Other: Voiding Method Toilet - Labs CBC & Chem 7: 09/14/21 02:24 09/14/21 02:24 Labs: Abnormal Lab Results - Last 24 Hours (Table) 09/13/21 09/14/21 09/14/21 Range/Units 20:45 00:03 02:24 APTT 42.9 H (22.0-30.0) sec Potassium 3.3 L (3.5-5.1) mmol/L Chloride (98-107) mmol/L Carbon Dioxide 20 L (22-30) mmol/L BUN (7-17) mg/dL Creatinine (0.52-1.04) mg/dL Glucose 135 H (74-99) mg/dL Troponin I 0.049 H* (0.000-0.034) ng/mL 09/14/21 09/14/21 Range/Units 02:24 02:24 APTT (22.0-30.0) sec Potassium (3.5-5.1) mmol/L Chloride 111 H (98-107) mmol/L Carbon Dioxide (22-30) mmol/L BUN 6 L (7-17) mg/dL Creatinine 0.49 L (0.52-1.04) mg/dL Glucose 135 H (74-99) mg/dL Troponin I 0.086 H* (0.000-0.034) ng/mL
[2021-09-14] MEDS: HEPARIN SODIUM,PORCINE/PF 5,000 UNIT/0.5 ML SYRINGE SQ SCH (16:10)
[2021-09-14] MEDS ORDERED: ATORVASTATIN 20 MG TAB PO SCH (21:00)
[2021-09-14] MEDS ORDERED: atenoloL 25 MG TAB PO SCH (21:00)
[2021-09-14] MEDS ORDERED: ACETAMINOPHEN TAB 325 MG TAB PO PRN (23:42)
[2021-09-15] MEDS: HEPARIN SODIUM,PORCINE/PF 5,000 UNIT/0.5 ML SYRINGE SQ SCH ×2 (00:10→08:35)
[2021-09-15] MEDS: LEVOTHYROXINE 125 MCG TAB PO SCH (06:19)
[2021-09-15 08:40] VITALS: RESP 17
[2021-09-15] MEDS: FAMOTIDINE 20 MG TAB PO SCH (09:24)
[2021-09-15] MEDS: SERTRALINE 50 MG TAB PO SCH (09:25)
[2021-09-15] MEDS: METOPROLOL SUCCINATE (ER) 25 MG TAB.ER.24H PO SCH (09:25)
--- NOTE | 2021-09-15 10:16 | P.PN ---
Subjective This is a pleasant 51-year-old female past medical history significant for hypothyroidism, dyslipidemia, hypertension. She does not follow with a car diologist. We have been asked to see in consultation for SVT. Patient was admitted to the emergency department with complaints of palpitations and back pain. She states yesterday she was at a barbecue, had half a glass of wine. She stated that she started to have palpitations, and some pain in the middle of her back. She states her palpitations did not improve and she presents emergency department for further evaluation. She was found to be in SVT. On admission patient was started on a Cardizem drip. He heart rates have improved. She is feeling better, symptoms have resolved. He she states she is seen and has a history of SVT. No history of CAD, NE, Stroke, Diabetes. She denies any tobacco use. She states she drinks wine occasionally, sometimes 1 glass every other day DIAGNOSTICS * EKG reveals Supraventricular tachycardia, AVNRT. Heart rate 133. * Repeat EKG revealed sinus rhythm, heart rate 96, incomplete right bundle branch block * Echocardiogram revealed EF of 5560 percent, no significant wall motion or valvular abnormalities. 09/14/2021 Patient seen and examined at bedside, no acute distress. She denies any chest pain, shortness of breath and palpitations. Telemetry reviewed patient is maintaining sinus mechanism heart rate 60s80s. No further evidence of SVT. Echocardiogram reviewed with EF 5560 percent. She is currently maintained on metoprolol succinate 25 mg daily PHYSICAL EXAMINATION Vitals reviewed CONSTITUTIONAL: No apparent distress. HEENT: Head is normocephalic. Neck supple No JVD. CHEST EXAMINATION: Lungs are clear to auscultation. No chest wall tenderness is noted on palpation or with deep breathing. HEART EXAMINATION: Regular rate and rhythm. S1, S2 heard. No murmurs, gallops or rub. ABDOMEN: Soft, nontender. Positive bowel sounds. EXTREMITIES: 2+ peripheral pulses, no lower extremity edema and no calf tenderne ss. NEUROLOGIC EXAMINATION: Patient is awake, alert and oriented x3. ASSESSMENT Supraventricular tachycardia, AVNRT Elevated troponin, likely tachycardia-induced History of SVT Hypothyroidism Dyslipidimeal Hypertension PLAN Continue metoprolol succinate 25mg daily From cardiology perspective, patient is able to be discharged home. Follow up outpatient with Dr. Myers Nurse practitioner note has been reviewed by physician. Signing provider agrees with the documented findings, assessment, and plan of care. Objective - Vital Signs Vital signs: Vital Signs Temp 98.5 F 09/15/21 08:00 Pulse 73 09/15/21 08:00 Resp 17 09/15/21 08:00 BP 115/76 09/15/21 08:00 Pulse Ox 98 09/15/21 08:00 FiO2 Intake & Output 09/14/21 09/15/21 09/15/21 18:59 06:59 18:59 Intake Total 46.883 Balance 46.883 Intake: Intake, IV Titration 46.883 Amount Heparin Sod,Pork in 0.45% 46.883 NaCl 25,000 unit In 0.45 % NaCl 1 250ml.bag @ 12 UNITS/KG/HR 7.176 mls/hr IV .Q24H [facility] Rx#: [id number] Other: Voiding Method Toilet Toilet Toilet # Voids 2 2 - Labs CBC & Chem 7: 09/14/21 02:24 09/14/21 02:24 Labs: Abnormal Lab Results - Last 24 Hours (Table) 09/14/21 Range/Units 02:24 Chloride 111 H (98-107) mmol/L BUN 6 L (7-17) mg/dL Creatinine 0.49 L (0.52-1.04) mg/dL Glucose 135 H (74-99) mg/dL TSH <0.015 L (0.465-4.680) mIU/L
[2021-09-15 12:24] VITALS: BP 143/86; PULSE 78; TEMP 97.8
--- NOTE | 2021-09-15 12:51 | P.DS ---
Providers Date of admission: 09/13/21 22:16 Expected date of discharge: 09/15/21 Attending physician: Jimmy Fernandez MD Consults: 09/13/21 22:16 Consult Physician Urgent Consulting Provider: Zafar Sheffield Consult Reason/Comments: cp, tachy Do you want consulting provider notified?: Already Contacted Primary care physician: Quyen [facility] Course: Discharge Diagnosis: SVT, atenolol was discontinued and patient to continue metoprolol 25 mg daily and follow up outpatient with cardiology in 2 weeks. Elevated troponin, likely secondary to tachycardic rate. Evaluated by cardiology. Patient recommended to continue metoprolol 25 mg daily and a follow-up outpatient in 2 weeks. Echocardiogram revealing normal systolic function between 55 and 60% with no reported structural or valvular abnormalities. Hypokalemia, resolved Hypertension. Monitor vital signs and continue daily medication with metoprolol Hyperlipidemia. Continue daily medication regimen with atorvastatin Hypothyroidism. Continue daily medication regimen with levothyroxine 125 g daily. TSH 0.015 with a normal free T4 of 2.17. Recommend repeat testing in 8- 12 weeks by PCP/endocrinology an outpatient basis. Anxiety. Continue daily medication regimen of Zoloft. Hospital Course: Patient is a very pleasant 51-year-old female with a past medical history of hypothyroidism, hypertension, hyperlipidemia, and isolated episode of SVT in 2002. She presented to the emergency department with a chief complaint of palpitations and chest tightness. She underwent full evaluation in the emergency department and was found to be in A. flutter with RVR. CBC, CMP, and coags showing no significant abnormalities with the exception of hypokalemia with potassium of 3.3 with current dioxide of 20. D-dimer normal findings is 0.28 and troponin less than 0.012. Patient was admitted under our services of consultation to cardiology. Patient monitored overnight. Troponins increasing from 0.012-0.049 and 0.086. TSH completed less than 0.015 with a normal free T4 of 2.17. Patient now in normal sinus rhythm. Cardizem and heparin infusion were discontinued. Production Welder evaluated EKG stating this was not atrial flutter this was SVT and discontinuing home atenolol and starting patient on metoprolol 25 mg daily. TSH resulting less than 0.015 with a normal free T4 of 2.17. Echocardiogram revealing normal systolic function between 55 and 60% with no reported structural or valvular abnormalities. Patient has remained in normal sinus rhythm for greater than 24 hours. She is free from any chest pain or complaints. Cardiology recommending outpatient in their office in 2 weeks. Patient is medically stable at this time and being discharged home on metoprolol 25 mg daily and instructed to follow up outpatient with PCP in 1-2 days and with cardiology in 2 weeks. Physical exam: Vital signs reviewed and stable. General: Nontoxic, no distress and appears stated age. Derm: Skin warm and dry, normal coloration for ethnicity. Head: Atraumatic, normocephalic and symmetric. Eyes: EOMs intact, no lid lag, and anicteric sclera Mouth: no lip lesions, mucus membranes moist Cardiovascular: regular rate and rhythm with normal S1S2, no murmur, positive posterior tibial pulses bilaterally, and cap refill < 2 seconds. Lungs: Respirations even, regular, and unlabored on room air. Lungs CTA bilaterally, no rhonchi, no rales, no wheezing, and no accessory muscle usage. Abdominal: soft, nontender to palpation, no guarding, no appreciable organomegaly Ext: ROM intact. No gross muscle atrophy, no edema, no contractures Neuro: Speech clear, face symmetrical and CN II-XII grossly intact with no noted focal neuro deficits Psych: Alert and oriented to person, place, time, and situation. Appropriate and pleasant affect. A total of 34 minutes of time were spent preparing this complex discharge summary. Pt was discharged on 09/15/21 at 12:49 PM. I reviewed the documentation as provided by the GUY above, who is the original author of this note. I agree with the documented assessment and plan, with the following changes: none Patient Condition at Discharge: Stable Plan - Discharge Summary Discharge Rx Participant: No New Discharge Prescriptions: New Metoprolol Succinate (ER) [Toprol XL] 25 mg PO DAILY #90 tab Continue Sertraline [Zoloft] 50 mg PO DAILY Levothyroxine Sodium [Synthroid] 125 mcg PO DAILY Rosuvastatin [Crestor] 10 mg PO HS Discontinued atenoloL [Tenormin] 12.5 mg PO HS Discharge Medication List Levothyroxine Sodium [Synthroid] 125 mcg PO DAILY 09/13/21 [History] Rosuvastatin [Crestor] 10 mg PO HS 09/13/21 [History] Sertraline [Zoloft] 50 mg PO DAILY 09/13/21 [History] Metoprolol Succinate (ER) [Toprol XL] 25 mg PO DAILY #90 tab 09/15/21 [Rx] Follow up Appointment(s)/Referral(s): Ashu yMers MD [STAFF PHYSICIAN] - 2 Weeks (office will call you with appt. time) Quyen Ge MD [Primary Care Provider] - 1-2 days (please call for appt. could not get through to office) Patient Instructions/Handouts: Metoprolol (By mouth), Supraventricular Tachycardia (GEN) Activity/Diet/Wound Care/Special Instructions: Activity: As tolerated. Take breaks as needed. Diet: Heart healthy and carb consistent diet. Avoid salts, or foods with hidden salts such as canned or boxed foods and frozen dinners. Extra salt makes your heart work harder and traps the fluid in your body for longer. Special Instructions: Take all of your medications as directed and remember to keep all of your doctor's appointments and follow-up as needed. TSH 0.015 with a normal free T4 of 2.17. Recommend continuation of levoth yroxine 125 g daily and repeat thyroid testing in 8-12 weeks by PCP/endocrinology an outpatient basis for long-term monitoring/management. Thank you for allowing us to participate in your care, it was truly a pleasure having you for our patient!!! Discharge Disposition: HOME SELF-CARE
== END 2021-09-15 14:57 | disposition home or self-care (01) ==
LOC: EC 20:26 → INTOOBSV 22:16 → 3SCARD 22:16 → UNDODISIN 09-15 14:57
PROVIDERS: ADMIT Internal Medicine; ATTEND Internal Medicine
DX: I47.1 Supraventricular tachycardia (principal); R79.89 Other specified abnormal findings of blood chemistry; E87.6 Hypokalemia; I45.10 Unspecified right bundle-branch block; I48.91 Unspecified atrial fibrillation; I48.92 Unspecified atrial flutter; I10 Essential (primary) hypertension; E78.5 Hyperlipidemia, unspecified; E03.9 Hypothyroidism, unspecified; I07.1 Rheumatic tricuspid insufficiency; F41.9 Anxiety disorder, unspecified; Z79.890 Hormone replacement therapy; Z79.899 Other long term (current) drug therapy; Z88.0 Allergy status to penicillin; Z88.2 Allergy status to sulfonamides; Z88.5 Allergy status to narcotic agent; Z98.818 Other dental procedure status; Z82.49 Family history of ischemic heart disease and other diseases of the circulatory system; Z82.0 Family history of epilepsy and other diseases of the nervous system; Z81.8 Family history of other mental and behavioral disorders
CPT/HCPCS: 96366 ×3; 96368 ×2; 96376; 96365; 96375; 99291; 36415; 93005; 93306; 85379; 84439; 80053; 80048; 84443; 83735; 84484 ×2; 85025 ×2; 85610 ×2; 85730 ×2; 71045; G0378 ×3; J1644 ×2

== ENCOUNTER 2021-11-15 00:24 | Emergency (ER) | payer BC, OTHER ==
[2021-11-15 00:31] VITALS: RESP 16; TEMP 98.3
[2021-11-15] MEDS ORDERED: SODIUM CHLORIDE 0.9% 1,000 ML IV STA ×2 (01:12)
--- NOTE | 2021-11-15 01:14 | ED ---
Chest Pain HPI - General Chief Complaint: Chest Pain Stated Complaint: Arrhythmia Time Seen by Provider: 11/15/21 01:12 Source: patient, RN notes reviewed, old records reviewed Mode of arrival: ambulatory Limitations: no limitations - History of Present Illness Initial Comments: This is a 51-year-old female to the ER today. She presents today for evaluation of elevated heart rate patient feels like her heart is racing. She is having trouble catching her breath. No recent change in medications. Patient denies drug or alcohol abuse. MD Complaint: chest pain, other (svt) -: unknown Onset: during rest, during exertion Pain Location: substernal Pain Radiation: none Severity: severe Severity scale (1-10): 8 Quality: tightness, heaviness Consistency: constant Improves With: nothing Worsens With: nothing Anginal Symptoms: nausea, dyspnea Other Symptoms: palpitations Treatments Prior to Arrival: none - Related Data On Oral Contraceptives: No Home Medications Medication Instructions Recorded Confirmed Levothyroxine Sodium [Synthroid] 125 mcg PO DAILY 09/13/21 09/13/21 Rosuvastatin [Crestor] 10 mg PO HS 09/13/21 09/13/21 Sertraline [Zoloft] 50 mg PO DAILY 09/13/21 09/13/21 Previous Rx's Medication Instructions Recorded Metoprolol Succinate (ER) [Toprol 25 mg PO DAILY #90 tab 09/15/21 XL] Allergies Allergy/AdvReac Type Severity Reaction Status Date / Time codeine Allergy Vomiting Verified 09/13/21 20:58 Penicillins Allergy Rash/Hives Verified 09/13/21 20:58 Sulfa (Sulfonamide Allergy Rash/Hives Verified 09/13/21 20:58 Antibiotics) Review of Systems ROS Statement: Those systems with pertinent positive or pertinent negative responses have been documented in the HPI. ROS Other: All systems not noted in ROS Statement are negative. EKG Findings - EKG Comments: EKG Findings:: EKG is tachycardia 121 WA 167 QRS 121 QTC 391 Past Medical History Past Medical History: Supraventricular Tachycardia (SVT) Additional Past Medical History / Comment(s): SVT 2003 History of Any Multi-Drug Resistant Organisms: None Reported Additional Past Surgical History / Comment(s): WISDOM TEETH REMOVED Past Anesthesia/Blood Transfusion Reactions: No Reported Reaction Past Psychological History: No Psychological Hx Reported Smoking Status: Never smoker - Past Family History Mother Family Medical History: Myocardial Infarction (ID), Renal Disease Additional Family Medical History / Comment(s): DEPRESSION, Father Additional Family Medical History / Comment(s): PARKINSONS General Exam Limitations: no limitations General appearance: anxious Head exam: Present: atraumatic, normocephalic, normal inspection Eye exam: Present: normal appearance, PERRL, EOMI. Absent: scleral icterus, conjunctival injection, periorbital swelling ENT exam: Present: normal exam, mucous membranes moist Neck exam: Present: normal inspection. Absent: tenderness, meningismus, lymph adenopathy Respiratory exam: Present: normal lung sounds bilaterally. Absent: respiratory distress, wheezes, rales, rhonchi, stridor Cardiovascular Exam: Present: normal rhythm, tachycardia, normal heart sounds. Absent: systolic murmur, diastolic murmur, rubs, gallop, clicks GI/Abdominal exam: Present: soft, normal bowel sounds. Absent: distended, tenderness, guarding, rebound, rigid Extremities exam: Present: normal inspection, full ROM, normal capillary refill. Absent: tenderness, pedal edema, joint swelling, calf tenderness Back exam: Present: normal inspection Neurological exam: Present: alert, oriented X3, CN II-XII intact Psychiatric exam: Present: normal affect, normal mood Skin exam: Present: warm, dry, intact, normal color. Absent: rash Course Vital Signs 11/15/21 11/15/21 11/15/21 00:28 01:43 02:30 Temperature 98.3 F Pulse Rate 126 H 108 H 100 Respiratory 16 16 16 Rate Blood Pressure 120/62 132/81 122/86 O2 Sat by Pulse 100 100 98 Oximetry 11/15/21 03:00 Temperature Pulse Rate 92 Respiratory 16 Rate Blood Pressure O2 Sat by Pulse Oximetry - Reevaluation(s) Reevaluation #1: 11/16/21 Medical Is reviewed Patient feels improved here in the ER Patient informed of results and questions answered Chest Pain MDM - MDM 51 female presenting with SVT versus sinus tachycardia. Improved beta betzy here in the ER patient feels well can be discharged home Disposition Clinical Impression: Narrow complex tachycardia, SVT (supraventricular tachycardia), Atrial fibrillation with RVR, Chest pain Disposition: HOME SELF-CARE Condition: Fair Instructions (If sedation given, give patient instructions): Supraventricular Tachycardia (ED) Is patient prescribed a controlled substance at d/c from ED?: No Referrals: Quyen Ge MD [Primary Care Provider] - 1-2 days Time of Disposition: 21:10
[2021-11-15 01:52] LABS: ALT 15 U/L (4-34); AST 23 U/L (14-36); African American GFR (CKD) >90 (>60 ml/min/1.73 sqM); Albumin 4.5 g/dL (3.5-5.0); Alkaline Phosphatase 89 U/L (38-126); Anion Gap 12 mmol/L; Blood Urea Nitrogen 17 mg/dL (7-17); Calcium 9.6 mg/dL (8.4-10.2); Carbon Dioxide 22 mmol/L (22-30); Chloride 104 mmol/L (98-107); Glucose 117 mg/dL (74-99); Magnesium 1.9 mg/dL (1.6-2.3); Non-African American GFR(CKD) >90 (>60 ml/min/1.73 sqM); Phosphorus 2.9 mg/dL (2.5-4.5); Potassium 3.5 mmol/L (3.5-5.1); Sodium 138 mmol/L (137-145); Total Bilirubin 0.8 mg/dL (0.2-1.3); Total Protein 7.2 g/dL (6.3-8.2)
[2021-11-15] MEDS ORDERED: METOPROLOL TARTRATE 5 MG/5 ML VIAL IVP STA (02:07)
[2021-11-15 02:09] LABS: Basophils % (A) 0 %; Eosinophils # (A) 0.1 k/uL (0-0.7); Eosinophils % (A) 2 %; HCT 37.5 % (34.0-46.0); HGB 12.8 gm/dL (11.4-16.0); Lymphocytes # (A) 2.1 k/uL (1.0-4.8); Lymphocytes % (A) 35 %; MCH 30.7 pg (25.0-35.0); MCHC 34.1 g/dL (31.0-37.0); MCV 90.1 fL (80.0-100.0); Mean Platelet Volume 9.4; Monocytes # (A) 0.6 k/uL (0-1.0); Monocytes % (A) 10 %; Neutrophils # (A) 2.8 k/uL (1.3-7.7); Neutrophils % (A) 49 %; Platelet Count 223 k/uL (150-450); RBC 4.16 m/uL (3.80-5.40); RDW 12.4 % (11.5-15.5); WBC 5.8 k/uL (3.8-10.6)
[2021-11-15 02:31] VITALS: BP 122/86
[2021-11-15 02:41] LABS: INR 0.9 (<1.2); Partial Thromboplastin Time 21.9 sec (22.0-30.0); Prothrombin Time 9.9 sec (9.0-12.0)
[2021-11-15 04:06] VITALS: PULSE 92
== END 2021-11-15 04:03 | disposition home or self-care (01) ==
LOC: EC 00:24
DX: I47.1 Supraventricular tachycardia (principal); I48.91 Unspecified atrial fibrillation; R07.9 Chest pain, unspecified; Z88.5 Allergy status to narcotic agent; Z88.0 Allergy status to penicillin; Z88.2 Allergy status to sulfonamides; Z79.890 Hormone replacement therapy; Z79.899 Other long term (current) drug therapy
CPT/HCPCS: 36415; 80053; 83735; 83880; 84100; 84443; 84484; 85025; 85379; 85610; 85730; 93005; 96361; 96374; 99285

== ENCOUNTER → 2022-05-12 | Outpatient (CLI) | payer OTHER ==
--- NOTE | 2022-05-13 10:32 | MM ---
Reason for Exam: Screening (asymptomatic). Last screening mammogram was performed 12 month(s) ago. Patient History: Menarche at age 11. First Full-Term at age 29. Late child-bearing (after 30). Postmenopausal. Risk Values: Polly 5 year model risk: 1.5%. Prior Study Comparison: 04/27/2017 Right Diagnostic Mammogram, [facility]. 12/21/2019 Bilateral Screening Mammogram, [facility] 05/04/2021 Bilateral Screening Mammogram, [facility]. Tissue Density: The breast tissue is heterogeneously dense. This may lower the sensitivity of mammography. Findings: Analyzed By CAD. There appears symmetrical and stable. No significant interval change is evident. No suspicious groups of microcalcifications, spiculated or lobular masses, architectural distortion or other secondary signs of malignancy are mammographically apparent. Overall Assessment: Benign, BI-RAD 2 Management: Screening Mammogram of both breasts in 1 year. A negative mammogram report should not preclude additional follow up of suspicious palpable abnormalities. Patient should continue monthly self breast exam. A clinical breast exam by your physician is recommended on an annual basis and results should be correlated with mammographic findings. Electronically signed and approved by: Diego Niño D.O. Radiologis
== END | disposition home or self-care (01) ==
LOC: RADMAMWWP 14:37
PROVIDERS: ATTEND Family Medicine
DX: Z12.31 Encounter for screening mammogram for malignant neoplasm of breast (principal); Z78.0 Asymptomatic menopausal state
CPT/HCPCS: 77063; 77067

== ENCOUNTER → 2022-10-21 | Outpatient (CLI) | payer OTHER ==
[2022-10-21 16:48] LABS: ALT 11 U/L (8-44); AST 20 U/L (13-35); Albumin 4.7 d/dL (3.8-4.9); Albumin/Globulin Ratio 1.88 Ratio (1.60-3.17); Alkaline Phosphatase 77 U/L (41-126); Blood Urea Nitrogen 13.3 mg/dL (9.0-27.0); Calcium 9.9 mg/dL (8.7-10.3); Carbon Dioxide 25.6 mmol/L (21.6-31.8); Chloride 105 mmol/L (96-109); Chol/HDL Ratio 3.03 Ratio; Globulin 2.5 d/dL (1.6-3.3); Glucose 104 mg/dL (70-110); LDL Cholesterol,Calculated 126.1 mg/dL (0.0-131.0); Potassium 4.5 mmol/L (3.5-5.5); Sodium 141 mmol/L (135-145); T4, Free (Free Thyroxine) 1.24 ng/dL (0.80-1.80); Total Bilirubin 1.2 mg/dL (0.3-1.2); Total Protein 7.2 d/dL (6.2-8.2)
== END | disposition home or self-care (01) ==
LOC: LABWHC1 09:40
PROVIDERS: ATTEND Family Medicine
DX: E03.9 Hypothyroidism, unspecified (principal); E78.2 Mixed hyperlipidemia; E55.9 Vitamin D deficiency, unspecified
CPT/HCPCS: 36415; 80053; 80061; 82306; 84439; 84443

== ENCOUNTER → 2023-06-29 | Outpatient (CLI) | payer OTHER ==
--- NOTE | 2023-06-30 18:40 | MM ---
Reason for Exam: Screening (asymptomatic). Last mammogram was performed 1 year(s) and 2 month(s) ago. Patient History: Menarche at age 11. First Full-Term at age 29. Late child-bearing (after 28). Postmenopausal. Patient has history of breast feeding. Risk Values: Polly 5 year model risk: 1.6%. NCI Lifetime model risk: 11.2%. Prior Study Comparison: 12/21/2019 Bilateral Screening Mammogram, [facility]. 05/04/2021 Bilateral Screening Mammogram, [facility]. 05/12/2022 Bilateral MG 3D screening mammo w/cad, [facility]. Tissue Density: The breasts are heterogeneously dense, which may obscure small masses. Findings: Analyzed By CAD. There is no suspicious group of microcalcifications or new suspicious mass in either breast. Overall Assessment: Negative, BI-RAD 1 Management: Screening Mammogram of both breasts in 1 year. . Patient should continue monthly self-breast exams. A clinical breast exam by your physician is recommended on an annual basis. This exam should not preclude additional follow-up of suspicious palpable abnormalities. Note on Polly scores and lifetime risk: 1. A Polly score greater than 3% is considered moderate risk. If this is the case, consider specialist referral to assess eligibility for a risk reducing agent. 2. If overall lifetime risk for the development of breast cancer is 20% or higher, the patient may qualify for future screening with alternating mammogram and breast MRI. Electronically signed and approved by: Celi Giles M.D. Radiologist
== END | disposition home or self-care (01) ==
LOC: RADMAMWWP 09:09
PROVIDERS: ATTEND Family Medicine
DX: Z12.31 Encounter for screening mammogram for malignant neoplasm of breast (principal); Z78.0 Asymptomatic menopausal state
CPT/HCPCS: 77063; 77067